=== PATIENT | male | born 1970 | race Caucasian/White ===

== ENCOUNTER 2019-02-27 02:14 | Inpatient (IN) | payer MEDICARE, OTHER ==
[2019-02-27 03:31] LABS: ABNORMAL IP MESSAGE 1; HEMATOCRIT 15.1 % (42.0-52.0); MEAN CORPUSCULAR HEMOGLOBIN 33.8 pg (29.0-33.0); MEAN CORPUSCULAR HGB CONC 30.5 g/dl (32.0-37.0); NUCLEATED RED BLOOD CELLS% 1.9 /100WBC (0.0-0.0); PLATELET COUNT 53 10^3/UL (140-415); POSITIVE DIFF @See below; RED BLOOD COUNT 1.36 10^6/ul (4.70-6.10); RED CELL DISTRIBUTION WIDTH 21.4 % (11.5-14.5)
[2019-02-27 03:31] LABS: WHITE BLOOD COUNT 42.7 10^3/ul (4.8-10.8)
[2019-02-27 03:36] LABS: ADD MAN DIFF? YES; HEMOGLOBIN 4.6 g/dl (14.0-18.0); PATH REVIEW? YES
[2019-02-27 03:53] LABS: ALANINE AMINOTRANSFERASE 60 IU/L (13-69); ALBUMIN/GLOBULIN RATIO 0.86; ALKALINE PHOSPHATASE 484 IU/L (42-121); ANION GAP 7 (5-13); ASPARTATE AMINO TRANSFERASE 35 IU/L (15-46); BILIRUBIN,INDIRECT 0.2 mg/dl (0-1.1); BILIRUBIN,TOTAL 0.2 mg/dl (0.2-1.3); BLOOD UREA NITROGEN 80 mg/dl (7-20); CARBON DIOXIDE 16 mmol/L (21-31); CHLORIDE 109 mmol/L (97-110); CREATININE 1.87 mg/dl (0.61-1.24); Estimated GFR 39 mL/min (>60); GLUCOSE 148 mg/dl (70-220); LIPASE 22 U/L (23-300); POTASSIUM 4.4 mmol/L (3.5-5.1); SODIUM 132 mmol/L (135-144); TOTAL PROTEIN 4.3 g/dl (6.1-8.1)
[2019-02-27 04:05] LABS: B-TYPE NATRIURETIC PEPTIDE 2040 PG/ML (0-125); TROPONIN-I < 0.012 ng/ml (0.000-0.120)
[2019-02-27] MEDS: SOD CHLORIDE 0.9% 1,000 ML IV (04:31)
[2019-02-27 05:10] LABS: ANISOCYTOSIS 1+ (0-0); ERYTHROBLAST% (NRBC) (M) 1 % (0-0); METAMYELOCYTES #M 1.2 10^3/ul (0.0-0.0); METAMYELOCYTES %M 3 % (0-0); MICROCYTOSIS 1+ (0-0); PLATELET ESTIMATE DECREASED; POIKILOCYTOSIS 1+ (0-0); POLYCHROMASIA 2+ (0-0); SEGMENTED NEUTROPHILS (M) % 25 % (39-77); SMUDGE%M 11 % (0-0); TEAR DROP CELLS 1+ (0-0)
[2019-02-27] MEDS ORDERED: ACETAMINOPHEN 650MG/20.3ML CUP PO (06:00)
[2019-02-27] MEDS ORDERED: DOCUSATE SODIUM 100 MG CAP PO (06:00)
[2019-02-27] MEDS ORDERED: BISACODYL (EC) 5 MG TAB PO (06:00)
[2019-02-27 06:10] LABS: AADO2 Arterial 27.3 mmHg (7.0-24.0); Allen Test ACCEPTAB; Arterial Base Excess -11.4 mmol/L (-3.0-3); Arterial Blood Gas Oxygen Sat 95.2 mmHG (95.0-98.0); Arterial COHb 0.7 % (0.0-3.0); Arterial Fraction of Oxyhgb 93.9 % (93.0-99.0); Arterial HCO3 13.5 mmol/L (22.0-26.0); Arterial MetHb 0.7 % (0.0-1.5); Arterial pCO2 25.8 mmhg (35-45); MODE ROOM AIR; Site Right Radial
[2019-02-27] MEDS: morphine 2 MG INJ IV ×4 (06:22→22:16)
[2019-02-27] MEDS: ONDANSETRON 4 MG INJ IV (06:22)
[2019-02-27] MEDS: PANTOPRAZOLE 40 MG INJ IV ×2 (06:51→18:00)
[2019-02-27] MEDS: SOD CHLORIDE 0.9% 500 ML IV (06:52)
[2019-02-27 07:02] LABS: URINE BLOOD (Dip) POC Trace-lysed (NEGATIVE); URINE GLUCOSE (Dip) POC Negative (NEGATIVE); URINE KETONES (Dip) POC Negative (NEGATIVE); URINE LEUKOCYTE EST (Dip) POC Negative (NEGATIVE); URINE NITRITE (Dip) POC Negative (NEGATIVE); URINE TOTAL PROTEIN POC 1+ (NEGATIVE)
[2019-02-27 07:08] LABS: RETICULOCYTE COUNT # 0.058 X10^6 (0.020-0.110); RETICULOCYTE COUNT % 3.8 % (0.5-1.5)
[2019-02-27 07:24] LABS: LACTATE DEHYDROGENASE 1249 IU/L (313-618)
[2019-02-27] MEDS ORDERED: traMADol 50 MG TAB PO (07:30)
[2019-02-27] MEDS: INSULIN ASPART [NOVOLOG] 3 ML PEN SC ×7 (07:35→22:09)
[2019-02-27 07:49] LABS: ADD UMIC YES; UR ASCORBIC ACID NEGATIVE (NEGATIVE); UR BACTERIA FEW /HPF (NONE SEEN); UR BILIRUBIN (Dip) NEGATIVE (NEGATIVE); UR BLOOD (Dip) 1+ mg/dL (NEGATIVE); UR CLARITY SLIGHTLY CLOUDY (CLEAR); UR COLOR AMBER (YELLOW); UR GLUCOSE (Dip) NEGATIVE (NEGATIVE); UR HYALINE CAST FEW /HPF (NONE SEEN); UR KETONES (Dip) NEGATIVE (NEGATIVE); UR LEUKOCYTE ESTERASE (Dip) NEGATIVE Leu/ul (NEGATIVE); UR NITRITE (Dip) NEGATIVE (NEGATIVE); UR RBC 1 /HPF (0-5); UR SPECIFIC GRAVITY (Dip) 1.017 (1.003-1.030); UR TOTAL PROTEIN (Dip) 1+ mg/dl (NEGATIVE); UR UROBILINOGEN (Dip) 1+ mg/dL (NEGATIVE); UR WBC 29 /HPF (0-5)
[2019-02-27] MEDS: BUMETANIDE 1 MG INJ IV (08:24)
[2019-02-27] MEDS ORDERED: NON-FORMULARY/PATIENT OWN MED (Insulin Lispro (Humalog Kwikpen) 3 UNIT) SQ (09:00)
[2019-02-27] MEDS: AMLODIPINE 10 MG TAB PO (09:00)
[2019-02-27 13:12] LABS: WHITE BLOOD COUNT 35.6 10^3/ul (4.8-10.8)
[2019-02-27 13:12] LABS: ABNORMAL IP MESSAGE 1; HEMATOCRIT 15.8 % (42.0-52.0); MEAN CORPUSCULAR HEMOGLOBIN 33.3 pg (29.0-33.0); MEAN CORPUSCULAR HGB CONC 30.4 g/dl (32.0-37.0); MEAN CORPUSCULAR VOLUME 109.7 fl (82.0-101.0); NUCLEATED RED BLOOD CELLS% 2.5 /100WBC (0.0-0.0); PLATELET COUNT 41 10^3/UL (140-415); POSITIVE DIFF @See below; RED BLOOD COUNT 1.44 10^6/ul (4.70-6.10); RED CELL DISTRIBUTION WIDTH 21.9 % (11.5-14.5)
[2019-02-27 13:22] LABS: ADD MAN DIFF? YES
[2019-02-27 13:25] LABS: HEMOGLOBIN 4.8 g/dl (14.0-18.0)
[2019-02-27 14:19] LABS: ANISOCYTOSIS 1+ (0-0); BAND NEUTROPHILS #M 1.7 10^3/ul (0.0-0.6); BAND NEUTROPHILS % (M) 5 % (0-4); BURR CELLS 1+ (0-0); EOSINOPHILS % (M) 2 % (0-7); ERYTHROBLAST% (NRBC) (M) 3 % (0-0); GIANT THROMBO% (M) 3 % (0-0); LYMPHOCYTES #M 8.9 10^3/ul (0.8-2.9); LYMPHOCYTES % (M) 25 % (15-51); METAMYELOCYTES #M 0.7 10^3/ul (0.0-0.0); METAMYELOCYTES %M 2 % (0-0); MONOCYTE #M 4.2 10^3/ul (0.3-0.9); MONOCYTES % (M) 12 % (0-11); MYELOCYTES % (M) 3 % (0-0); PLATELET ESTIMATE SIG DECREASED; POIKILOCYTOSIS 1+ (0-0); POLYCHROMASIA 2+ (0-0); SEG NEUT #M 9.1 10^3/ul (1.6-7.5); SEGMENTED NEUTROPHILS (M) % 24 % (39-77); SMUDGE%M 18 % (0-0)
[2019-02-27] MEDS ORDERED: GLUCOSE GEL 15 GRAM TUBE BUCCAL (15:00)
[2019-02-27] MEDS ORDERED: GLUCAGON 1 MG INJ IM (15:00)
[2019-02-27] MEDS ORDERED: GLUCOSE GEL 15 GRAM TUBE PO ×2 (15:00)
[2019-02-27] MEDS: HYDROCODONE/APAP (5/325) TAB PO (15:22)
[2019-02-27 16:14] LABS: BAND NEUTROPHILS % (M) 0 % (0-4); LYMPHOCYTES #M 2.1 10^3/ul (0.8-2.9); LYMPHOCYTES % (M) 5 % (15-51); SEG NEUT #M 10.7 10^3/ul (1.6-7.5)
[2019-02-27 16:15] LABS: EOSINOPHILS % (M) 12 % (0-7); MONOCYTE #M 5.1 10^3/ul (0.3-0.9); MONOCYTES % (M) 12 % (0-11); MYELOCYTES #M 2.1 10^3/ul (0.0-0.0); MYELOCYTES % (M) 5 % (0-0); PROMYELOCYTES #M 1.7 10^3/ul (0-0); PROMYELOCYTES % (M) 4 % (0-0)
[2019-02-27] MEDS: HYDROmorphONE 1 MG/ML SYG IV ×2 (16:36→20:03)
[2019-02-27 17:01] LABS: AHG CROSSMATCH 1 3
[2019-02-27] MEDS: MIRTAZAPINE 15 MG TAB PO (22:05)
[2019-02-27] MEDS: traZODone 50 MG TAB PO (22:05)
[2019-02-27 23:29] LABS: TYPE AND SCREEN 1
[2019-02-28] MEDS: HYDROmorphONE 1 MG/ML SYG IV ×6 (01:00→22:42)
[2019-02-28 01:17] LABS: WHITE BLOOD COUNT 34.7 10^3/ul (4.8-10.8)
[2019-02-28 01:17] LABS: ABNORMAL IP MESSAGE 1; HEMATOCRIT 25.2 % (42.0-52.0); MEAN CORPUSCULAR HGB CONC 31.7 g/dl (32.0-37.0); MEAN CORPUSCULAR VOLUME 94.4 fl (82.0-101.0); NUCLEATED RED BLOOD CELLS% 1.9 /100WBC (0.0-0.0); PLATELET COUNT 47 10^3/UL (140-415); POSITIVE DIFF @See below; RED BLOOD COUNT 2.67 10^6/ul (4.70-6.10)
[2019-02-28 01:27] LABS: ADD MAN DIFF? YES
[2019-02-28] MEDS: ACCU-CHEK XX (02:00)
[2019-02-28 02:24] LABS: ANISOCYTOSIS 2+ (0-0); BAND NEUTROPHILS % (M) 3 % (0-4); BLAST% (M) 27.5 % (0-0); BURR CELLS 2+ (0-0); EOSINOPHILS % (M) 2 % (0-7); ERYTHROBLAST% (NRBC) (M) 2 % (0-0); GIANT THROMBO% (M) 1 % (0-0); LYMPHOCYTES #M 1.3 10^3/ul (0.8-2.9); LYMPHOCYTES % (M) 4 % (15-51); METAMYELOCYTES #M 3.1 10^3/ul (0.0-0.0); METAMYELOCYTES %M 9 % (0-0); MICROCYTOSIS 1+ (0-0); MONOCYTE #M 4.8 10^3/ul (0.3-0.9); MONOCYTES % (M) 14 % (0-11); MYELOCYTES % (M) 3 % (0-0); PLATELET ESTIMATE DECREASED; POIKILOCYTOSIS 2+ (0-0); POLYCHROMASIA 1+ (0-0); REACTIVE LYMPHOCYTES #M 0.3 10^3/ul (0.0-0.0); REACTIVE LYMPHOCYTES% (M) 1 % (0-0); SEG NEUT #M 12.8 10^3/ul (1.6-7.5); SEGMENTED NEUTROPHILS (M) % 36 % (39-77); SMUDGE%M 15 % (0-0)
[2019-02-28] MEDS: morphine 2 MG INJ IV ×2 (03:19→08:36)
[2019-02-28] MEDS: PANTOPRAZOLE 40 MG INJ IV ×2 (06:03→18:22)
[2019-02-28 06:36] LABS: LACTATE DEHYDROGENASE 1690 IU/L (313-618)
[2019-02-28 06:36] LABS: ANION GAP 7 (5-13); BLOOD UREA NITROGEN 79 mg/dl (7-20); CALCIUM 6.8 mg/dl (8.4-10.2); CARBON DIOXIDE 16 mmol/L (21-31); CHLORIDE 112 mmol/L (97-110); CREATININE 1.47 mg/dl (0.61-1.24); Estimated GFR 51 mL/min (>60); GLUCOSE 86 mg/dl (70-220); POTASSIUM 3.6 mmol/L (3.5-5.1); SODIUM 135 mmol/L (135-144)
[2019-02-28] MEDS: INSULIN ASPART [NOVOLOG] 3 ML PEN SC ×7 (07:35→21:00)
[2019-02-28] MEDS: AMLODIPINE 10 MG TAB PO (08:37)
[2019-02-28] MEDS: LORAZEPAM 1 MG TAB PO (13:39)
[2019-02-28] MEDS: morphine 4 MG/ML VIAL IV ×2 (13:39→20:47)
[2019-02-28] MEDS: MIRTAZAPINE 15 MG TAB PO (21:21)
[2019-02-28] MEDS: morphine (ER) 15 MG TAB PO (21:21)
[2019-02-28] MEDS: traZODone 50 MG TAB PO (21:22)
[2019-03-01] MEDS: morphine 4 MG/ML VIAL IV ×3 (00:01→22:25)
[2019-03-01] MEDS: ACCU-CHEK XX (02:00)
[2019-03-01] MEDS: HYDROmorphONE 1 MG/ML SYG IV ×5 (03:28→19:39)
[2019-03-01] MEDS: PANTOPRAZOLE 40 MG INJ IV ×2 (05:28→18:52)
[2019-03-01 06:00] LABS: ABNORMAL IP MESSAGE 1; HEMATOCRIT 23.6 % (42.0-52.0); HEMOGLOBIN 7.7 g/dl (14.0-18.0); MEAN CORPUSCULAR HEMOGLOBIN 30.4 pg (29.0-33.0); MEAN CORPUSCULAR HGB CONC 32.6 g/dl (32.0-37.0); MEAN CORPUSCULAR VOLUME 93.3 fl (82.0-101.0); MEAN PLATELET VOLUME 10.1 fl (7.4-10.4); NUCLEATED RED BLOOD CELLS% 1.4 /100WBC (0.0-0.0); POSITIVE DIFF @See below; RED BLOOD COUNT 2.53 10^6/ul (4.70-6.10); RED CELL DISTRIBUTION WIDTH 28.8 % (11.5-14.5)
[2019-03-01 06:00] LABS: WHITE BLOOD COUNT 35.9 10^3/ul (4.8-10.8)
[2019-03-01 06:09] LABS: ADD MAN DIFF? YES; PLATELET COUNT 28 10^3/UL (140-415)
[2019-03-01 06:11] LABS: INR 1.41; PROTIME 17.4 Sec (11.9-14.9); PT RATIO 1.4
[2019-03-01 06:17] LABS: ANION GAP 7 (5-13); BLOOD UREA NITROGEN 71 mg/dl (7-20); CARBON DIOXIDE 18 mmol/L (21-31); CHLORIDE 109 mmol/L (97-110); CREATININE 1.38 mg/dl (0.61-1.24); Estimated GFR 55 mL/min (>60); GLUCOSE 80 mg/dl (70-220); POTASSIUM 3.5 mmol/L (3.5-5.1); SODIUM 134 mmol/L (135-144)
[2019-03-01] MEDS: INSULIN ASPART [NOVOLOG] 3 ML PEN SC ×7 (08:23→20:39)
[2019-03-01] MEDS: morphine (ER) 15 MG TAB PO ×2 (08:44→20:16)
[2019-03-01] MEDS: AMLODIPINE 10 MG TAB PO (08:46)
[2019-03-01 09:34] LABS: ANISOCYTOSIS 2+ (0-0); BAND NEUTROPHILS #M 0.7 10^3/ul (0.0-0.6); BAND NEUTROPHILS % (M) 2 % (0-4); BURR CELLS 2+ (0-0); EOSINOPHILS % (M) 5 % (0-7); GIANT THROMBO% (M) 1 % (0-0); LYMPHOCYTES #M 3.5 10^3/ul (0.8-2.9); LYMPHOCYTES % (M) 10 % (15-51); MICROCYTOSIS 1+ (0-0); MONOCYTE #M 5.3 10^3/ul (0.3-0.9); MONOCYTES % (M) 15 % (0-11); MYELOCYTES #M 0.3 10^3/ul (0.0-0.0); MYELOCYTES % (M) 1 % (0-0); PLATELET ESTIMATE SIG DECREASED; POIKILOCYTOSIS 2+ (0-0); POLYCHROMASIA 1+ (0-0); PROMYELOCYTES #M 0.7 10^3/ul (0-0); PROMYELOCYTES % (M) 2 % (0-0); SEG NEUT #M 11.7 10^3/ul (1.6-7.5); SEGMENTED NEUTROPHILS (M) % 32 % (39-77); SMUDGE%M 15 % (0-0); TARGET CELLS 1+ (0-0)
[2019-03-01] MEDS: BISACODYL (EC) 5 MG TAB PO (13:04)
[2019-03-01] MEDS: POLYETHYLENE GLYCOL 3350 119 GM POWDER PO ×2 (18:52→18:53)
[2019-03-01] MEDS: FUROSEMIDE 40 MG INJ IV (19:36)
[2019-03-01] MEDS: MAGNESIUM CITRATE 300 ML BTL PO (20:08)
[2019-03-01] MEDS: MIRTAZAPINE 15 MG TAB PO (20:15)
[2019-03-01] MEDS: traZODone 50 MG TAB PO (20:15)
[2019-03-01] MEDS: ONDANSETRON 4 MG INJ IV (20:20)
[2019-03-02] MEDS: ACCU-CHEK XX (02:14)
[2019-03-02 05:20] LABS: WHITE BLOOD COUNT 53.1 10^3/ul (4.8-10.8)
[2019-03-02 05:20] LABS: ABNORMAL IP MESSAGE 1; HEMATOCRIT 20.9 % (42.0-52.0); MEAN CORPUSCULAR HEMOGLOBIN 30.6 pg (29.0-33.0); MEAN CORPUSCULAR HGB CONC 32.5 g/dl (32.0-37.0); MEAN CORPUSCULAR VOLUME 94.1 fl (82.0-101.0); MEAN PLATELET VOLUME 9.3 fl (7.4-10.4); NUCLEATED RED BLOOD CELLS% 1.4 /100WBC (0.0-0.0); POSITIVE DIFF @See below; RED BLOOD COUNT 2.22 10^6/ul (4.70-6.10); RED CELL DISTRIBUTION WIDTH 28.7 % (11.5-14.5)
[2019-03-02 05:21] LABS: ADD MAN DIFF? YES
[2019-03-02 05:22] LABS: HEMOGLOBIN 6.8 g/dl (14.0-18.0); PLATELET COUNT 25 10^3/UL (140-415)
[2019-03-02 06:19] LABS: MAGNESIUM 3.3 mg/dl (1.7-2.5)
[2019-03-02 06:19] LABS: PHOSPHORUS 5.2 mg/dl (2.5-4.9)
[2019-03-02] MEDS: PANTOPRAZOLE 40 MG INJ IV ×2 (06:29→19:09)
[2019-03-02] MEDS: FUROSEMIDE 40 MG INJ IV ×2 (06:30→19:09)
[2019-03-02 06:36] LABS: ANION GAP 6 (5-13); Estimated GFR 41 mL/min (>60)
[2019-03-02 06:56] LABS: BLOOD UREA NITROGEN 80 mg/dl (7-20); CALCIUM 6.9 mg/dl (8.4-10.2); CARBON DIOXIDE 18 mmol/L (21-31); CHLORIDE 108 mmol/L (97-110); CREATININE 1.79 mg/dl (0.61-1.24); GLUCOSE 82 mg/dl (70-220); POTASSIUM 3.5 mmol/L (3.5-5.1); SODIUM 132 mmol/L (135-144)
[2019-03-02 07:37] LABS: ANISOCYTOSIS 2+ (0-0); BAND NEUTROPHILS #M 3.1 10^3/ul (0.0-0.6); BAND NEUTROPHILS % (M) 6 % (0-4); EOSINOPHILS % (M) 3 % (0-7); ERYTHROBLAST% (NRBC) (M) 2 % (0-0); LYMPHOCYTES #M 3.1 10^3/ul (0.8-2.9); LYMPHOCYTES % (M) 6 % (15-51); METAMYELOCYTES #M 2.6 10^3/ul (0.0-0.0); METAMYELOCYTES %M 5 % (0-0); MONOCYTES % (M) 17 % (0-11); MYELOCYTES #M 0.5 10^3/ul (0.0-0.0); MYELOCYTES % (M) 1 % (0-0); PLATELET ESTIMATE SIG DECREASED; POIKILOCYTOSIS 1+ (0-0); POLYCHROMASIA 1+ (0-0); REACTIVE LYMPHOCYTES #M 0.5 10^3/ul (0.0-0.0); REACTIVE LYMPHOCYTES% (M) 1 % (0-0); SEG NEUT #M 19.2 10^3/ul (1.6-7.5); SEGMENTED NEUTROPHILS (M) % 33 % (39-77); SMUDGE%M 25 % (0-0)
[2019-03-02] MEDS: INSULIN ASPART [NOVOLOG] 3 ML PEN SC ×7 (08:00→21:00)
[2019-03-02] MEDS: morphine (ER) 15 MG TAB PO ×2 (08:32→20:49)
[2019-03-02] MEDS: BISACODYL (EC) 5 MG TAB PO (08:39)
[2019-03-02] MEDS: AMLODIPINE 10 MG TAB PO (09:00)
[2019-03-02 10:44] LABS: TYPE AND SCREEN 1
[2019-03-02] MEDS: HYDROmorphONE 1 MG/ML SYG IV ×4 (11:10→23:31)
[2019-03-02 13:12] LABS: AHG CROSSMATCH 1 2
[2019-03-02] MEDS: PROPOFOL 60 ML (17:11)
[2019-03-02] MEDS: LIDOCAINE 2% (SDV) 5 ML INJ (17:11)
[2019-03-02] MEDS ORDERED: EPHEDrine 25 MG/5 ML SYG IV (18:30)
[2019-03-02] MEDS ORDERED: MEPERIDINE 25 MG INJ IV (18:30)
[2019-03-02] MEDS ORDERED: ONDANSETRON 4 MG INJ IV (18:30)
[2019-03-02] MEDS ORDERED: FENTAnyl 50 MCG/ML VIAL IV (18:30)
[2019-03-02] MEDS ORDERED: ALBUTEROL 0.083% (NEB) 2.5 MG/3 ML AMP HHN (18:30)
[2019-03-02] MEDS ORDERED: LABETALOL HCL 20MG INJ IV (18:30)
[2019-03-02] MEDS ORDERED: hydrALAzine 20 MG INJ IV (18:30)
[2019-03-02] MEDS ORDERED: DIPHENHYDRAMINE 50 MG INJ IV (18:30)
[2019-03-02] MEDS: MIRTAZAPINE 15 MG TAB PO (20:48)
[2019-03-02] MEDS: SUCRALFATE (100 MG/ML) 10ML CUP PO (20:48)
[2019-03-03] MEDS: morphine 4 MG/ML VIAL IV (01:24)
[2019-03-03] MEDS: ACCU-CHEK XX (01:55)
[2019-03-03 02:15] LABS: ABNORMAL IP MESSAGE 1; HEMOGLOBIN 8.4 g/dl (14.0-18.0); MEAN CORPUSCULAR HGB CONC 32.3 g/dl (32.0-37.0); MEAN CORPUSCULAR VOLUME 92.9 fl (82.0-101.0); NUCLEATED RED BLOOD CELLS% 0.7 /100WBC (0.0-0.0); POSITIVE DIFF @See below; RED CELL DISTRIBUTION WIDTH 26.3 % (11.5-14.5)
[2019-03-03 02:15] LABS: WHITE BLOOD COUNT 58.1 10^3/ul (4.8-10.8)
[2019-03-03 02:16] LABS: PLATELET COUNT 30 10^3/UL (140-415)
[2019-03-03 02:17] LABS: ADD MAN DIFF? YES
[2019-03-03 02:19] LABS: MEAN PLATELET VOLUME 9.6 fl (7.4-10.4)
[2019-03-03 03:37] LABS: ANISOCYTOSIS 1+ (0-0); BAND NEUTROPHILS % (M) 7 % (0-4); EOSINOPHILS % (M) 8 % (0-7); ERYTHROBLAST% (NRBC) (M) 3 % (0-0); LYMPHOCYTES #M 4.6 10^3/ul (0.8-2.9); LYMPHOCYTES % (M) 8 % (15-51); METAMYELOCYTES #M 2.3 10^3/ul (0.0-0.0); METAMYELOCYTES %M 4 % (0-0); MONOCYTE #M 9.2 10^3/ul (0.3-0.9); MONOCYTES % (M) 16 % (0-11); MYELOCYTES #M 0.5 10^3/ul (0.0-0.0); MYELOCYTES % (M) 1 % (0-0); PLATELET ESTIMATE SIG DECREASED; POLYCHROMASIA 3+ (0-0); PROMYELOCYTES #M 0.5 10^3/ul (0-0); PROMYELOCYTES % (M) 1 % (0-0); SEG NEUT #M 27.9 10^3/ul (1.6-7.5); SEGMENTED NEUTROPHILS (M) % 44 % (39-77); SMUDGE%M 9 % (0-0)
[2019-03-03] MEDS: PANTOPRAZOLE 40 MG INJ IV ×2 (05:14→17:48)
[2019-03-03] MEDS: FUROSEMIDE 40 MG INJ IV ×2 (05:14→17:48)
[2019-03-03] MEDS: HYDROmorphONE 1 MG/ML SYG IV ×5 (05:15→22:09)
[2019-03-03 06:01] LABS: ANION GAP 8 (5-13); Estimated GFR 37 mL/min (>60)
[2019-03-03 06:08] LABS: BLOOD UREA NITROGEN 86 mg/dl (7-20); CALCIUM 7.1 mg/dl (8.4-10.2); CARBON DIOXIDE 18 mmol/L (21-31); CHLORIDE 106 mmol/L (97-110); CREATININE 1.93 mg/dl (0.61-1.24); GLUCOSE 114 mg/dl (70-220); POTASSIUM 3.5 mmol/L (3.5-5.1); SODIUM 132 mmol/L (135-144)
[2019-03-03] MEDS: INSULIN ASPART [NOVOLOG] 3 ML PEN SC ×6 (08:00→20:36)
[2019-03-03] MEDS: AMLODIPINE 10 MG TAB PO (08:18)
[2019-03-03] MEDS: SUCRALFATE (100 MG/ML) 10ML CUP PO ×4 (08:18→20:34)
[2019-03-03] MEDS: morphine (ER) 15 MG TAB PO ×2 (08:19→20:34)
[2019-03-03] MEDS: MIRTAZAPINE 15 MG TAB PO (22:09)
[2019-03-04] MEDS: HYDROmorphONE 1 MG/ML SYG IV ×8 (01:21→22:48)
[2019-03-04] MEDS: ACCU-CHEK XX (01:54)
[2019-03-04] MEDS: PANTOPRAZOLE 40 MG INJ IV ×2 (05:45→17:39)
[2019-03-04] MEDS: FUROSEMIDE 40 MG INJ IV ×2 (05:46→17:40)
[2019-03-04 05:59] LABS: ABNORMAL IP MESSAGE 1; HEMATOCRIT 25.8 % (42.0-52.0); HEMOGLOBIN 8.4 g/dl (14.0-18.0); MEAN CORPUSCULAR HGB CONC 32.6 g/dl (32.0-37.0); MEAN CORPUSCULAR VOLUME 92.1 fl (82.0-101.0); MEAN PLATELET VOLUME 9.4 fl (7.4-10.4); NUCLEATED RED BLOOD CELLS% 0.6 /100WBC (0.0-0.0); POSITIVE DIFF @See below; RED CELL DISTRIBUTION WIDTH 26.1 % (11.5-14.5)
[2019-03-04 05:59] LABS: WHITE BLOOD COUNT 61.8 10^3/ul (4.8-10.8)
[2019-03-04 06:28] LABS: MAGNESIUM 2.6 mg/dl (1.7-2.5)
[2019-03-04 06:30] LABS: ALANINE AMINOTRANSFERASE 62 IU/L (13-69); ALBUMIN 2.3 g/dl (3.3-4.9); ALBUMIN/GLOBULIN RATIO 0.92; ALKALINE PHOSPHATASE 478 IU/L (42-121); ANION GAP 8 (5-13); ASPARTATE AMINO TRANSFERASE 31 IU/L (15-46); BILIRUBIN,INDIRECT 0.7 mg/dl (0-1.1); BILIRUBIN,TOTAL 0.9 mg/dl (0.2-1.3); BLOOD UREA NITROGEN 91 mg/dl (7-20); CALCIUM 7.1 mg/dl (8.4-10.2); CARBON DIOXIDE 17 mmol/L (21-31); CHLORIDE 106 mmol/L (97-110); CREATININE 1.72 mg/dl (0.61-1.24); Estimated GFR 42 mL/min (>60); GLUCOSE 103 mg/dl (70-220); POTASSIUM 3.5 mmol/L (3.5-5.1); SODIUM 131 mmol/L (135-144); TOTAL PROTEIN 4.8 g/dl (6.1-8.1)
[2019-03-04 06:59] LABS: ADD MAN DIFF? YES; PLATELET COUNT 19 10^3/UL (140-415)
[2019-03-04] MEDS: INSULIN ASPART [NOVOLOG] 3 ML PEN SC ×7 (07:37→20:10)
[2019-03-04] MEDS: SUCRALFATE (100 MG/ML) 10ML CUP PO ×5 (08:35→20:01)
[2019-03-04] MEDS: DOCUSATE SODIUM 100 MG CAP PO (08:35)
[2019-03-04] MEDS: morphine (ER) 15 MG TAB PO ×2 (08:35→20:01)
[2019-03-04 09:10] LABS: ANISOCYTOSIS 2+ (0-0); BAND NEUTROPHILS #M 2.4 10^3/ul (0.0-0.6); BAND NEUTROPHILS % (M) 4 % (0-4); BASOPHIL #M 0.6 10^3/ul (0.0-0.0); BASOPHILS % (M) 1 % (0-2); BURR CELLS 2+ (0-0); EOSINOPHILS % (M) 5 % (0-7); LYMPHOCYTES #M 5.5 10^3/ul (0.8-2.9); LYMPHOCYTES % (M) 9 % (15-51); METAMYELOCYTES #M 1.2 10^3/ul (0.0-0.0); METAMYELOCYTES %M 2 % (0-0); MONOCYTE #M 9.8 10^3/ul (0.3-0.9); MONOCYTES % (M) 16 % (0-11); MYELOCYTES #M 1.8 10^3/ul (0.0-0.0); MYELOCYTES % (M) 3 % (0-0); OVALOCYTES 1+ (0-0); PLATELET ESTIMATE SIG DECREASED; POIKILOCYTOSIS 2+ (0-0); POLYCHROMASIA 3+ (0-0); PROMYELOCYTES #M 1.2 10^3/ul (0-0); PROMYELOCYTES % (M) 2 % (0-0); SEG NEUT #M 25.6 10^3/ul (1.6-7.5); SEGMENTED NEUTROPHILS (M) % 39 % (39-77); SMUDGE%M 18 % (0-0); TARGET CELLS 1+ (0-0); TOXIC GRANULATION 1+ (0-0)
[2019-03-04] MEDS: ALTEPLASE (CATHFLO) 2 MG INJ CATHETER (13:39)
[2019-03-04] MEDS: MIRTAZAPINE 15 MG TAB PO (20:01)
[2019-03-04] MEDS: INSULIN GLARGINE [LANTus] (100 UNITS/ML) SYG SC (20:19)
[2019-03-04] MEDS: LOPERAMIDE 2 MG CAP PO (22:47)
[2019-03-05] MEDS: HYDROCODONE/APAP (10/325) TAB PO (00:56)
[2019-03-05] MEDS: ACCU-CHEK XX (01:36)
[2019-03-05] MEDS: HYDROmorphONE 1 MG/ML SYG IV ×7 (02:20→21:30)
[2019-03-05] MEDS: PANTOPRAZOLE 40 MG INJ IV ×2 (05:25→17:30)
[2019-03-05] MEDS: FUROSEMIDE 40 MG INJ IV ×4 (05:27→17:30)
[2019-03-05 07:04] LABS: WHITE BLOOD COUNT 68.8 10^3/ul (4.8-10.8)
[2019-03-05 07:04] LABS: ABNORMAL IP MESSAGE 1; HEMATOCRIT 24.4 % (42.0-52.0); HEMOGLOBIN 7.8 g/dl (14.0-18.0); MEAN CORPUSCULAR HEMOGLOBIN 29.3 pg (29.0-33.0); MEAN CORPUSCULAR VOLUME 91.7 fl (82.0-101.0); MEAN PLATELET VOLUME 10.9 fl (7.4-10.4); NUCLEATED RED BLOOD CELLS% 0.6 /100WBC (0.0-0.0); POSITIVE DIFF @See below; RED BLOOD COUNT 2.66 10^6/ul (4.70-6.10); RED CELL DISTRIBUTION WIDTH 26.1 % (11.5-14.5)
[2019-03-05 07:09] LABS: ANION GAP 7 (5-13); BLOOD UREA NITROGEN 91 mg/dl (7-20); CALCIUM 6.9 mg/dl (8.4-10.2); CARBON DIOXIDE 18 mmol/L (21-31); CHLORIDE 107 mmol/L (97-110); CREATININE 1.78 mg/dl (0.61-1.24); Estimated GFR 41 mL/min (>60); POTASSIUM 3.2 mmol/L (3.5-5.1); SODIUM 132 mmol/L (135-144)
[2019-03-05 07:10] LABS: GLUCOSE 50 mg/dl (70-220)
[2019-03-05 07:11] LABS: PLATELET COUNT 21 10^3/UL (140-415)
[2019-03-05 07:11] LABS: MAGNESIUM 2.3 mg/dl (1.7-2.5)
[2019-03-05 07:12] LABS: ADD MAN DIFF? YES
[2019-03-05] MEDS: INSULIN ASPART [NOVOLOG] 3 ML PEN SC ×5 (07:56→20:17)
[2019-03-05] MEDS: SUCRALFATE (100 MG/ML) 10ML CUP PO ×4 (07:56→20:13)
[2019-03-05] MEDS: morphine (ER) 15 MG TAB PO ×2 (07:56→20:14)
[2019-03-05] MEDS: DOCUSATE SODIUM 100 MG CAP PO (07:56)
[2019-03-05 09:22] LABS: ANISOCYTOSIS 2+ (0-0); BAND NEUTROPHILS #M 4.1 10^3/ul (0.0-0.6); BAND NEUTROPHILS % (M) 6 % (0-4); BURR CELLS 2+ (0-0); EOSINOPHILS % (M) 4 % (0-7); ERYTHROBLAST% (NRBC) (M) 1 % (0-0); HYPOCHROMASIA 1+ (0-0); LYMPHOCYTES #M 3.4 10^3/ul (0.8-2.9); LYMPHOCYTES % (M) 5 % (15-51); MONOCYTE #M 19.2 10^3/ul (0.3-0.9); MONOCYTES % (M) 28 % (0-11); MYELOCYTES % (M) 3 % (0-0); PLATELET ESTIMATE SIG DECREASED; POIKILOCYTOSIS 2+ (0-0); POLYCHROMASIA 3+ (0-0); PROMYELOCYTES #M 0.6 10^3/ul (0-0); PROMYELOCYTES % (M) 1 % (0-0); REACTIVE LYMPHOCYTES% (M) 3 % (0-0); SEG NEUT #M 22.1 10^3/ul (1.6-7.5); SEGMENTED NEUTROPHILS (M) % 28 % (39-77); SMUDGE%M 11 % (0-0); TARGET CELLS 1+ (0-0)
[2019-03-05] MEDS: POTASSIUM CHLORIDE 20 MEQ POWDER FOR ORAL SOLN PO ×2 (09:23→20:13)
[2019-03-05] MEDS: DEXTROSE 50% 50 ML SYRINGE IV (12:35)
[2019-03-05] MEDS: ONDANSETRON 4 MG INJ IV ×2 (13:58→20:29)
[2019-03-05 14:51] LABS: GLUCOSE 77 mg/dl (70-220)
[2019-03-05] MEDS: LOPERAMIDE 2 MG CAP PO ×2 (15:43→17:30)
[2019-03-05] MEDS: INSULIN GLARGINE [LANTus] (100 UNITS/ML) SYG SC (20:00)
[2019-03-05] MEDS: MIRTAZAPINE 15 MG TAB PO (20:13)
[2019-03-06] MEDS: HYDROmorphONE 1 MG/ML SYG IV ×6 (00:46→22:12)
[2019-03-06] MEDS: ACCU-CHEK XX ×2 (02:00→21:52)
[2019-03-06 06:22] LABS: ABNORMAL IP MESSAGE 1; HEMATOCRIT 22.7 % (42.0-52.0); HEMOGLOBIN 7.5 g/dl (14.0-18.0); MEAN CORPUSCULAR HEMOGLOBIN 30.2 pg (29.0-33.0); MEAN CORPUSCULAR VOLUME 91.5 fl (82.0-101.0); MEAN PLATELET VOLUME 10.2 fl (7.4-10.4); NUCLEATED RED BLOOD CELLS% 0.6 /100WBC (0.0-0.0); POSITIVE DIFF @See below; RED BLOOD COUNT 2.48 10^6/ul (4.70-6.10); RED CELL DISTRIBUTION WIDTH 25.9 % (11.5-14.5)
[2019-03-06] MEDS: PANTOPRAZOLE 40 MG INJ IV ×2 (06:24→18:15)
[2019-03-06 06:41] LABS: MAGNESIUM 2.1 mg/dl (1.7-2.5)
[2019-03-06 06:41] LABS: PHOSPHORUS 4.2 mg/dl (2.5-4.9)
[2019-03-06 06:48] LABS: ADD MAN DIFF? YES; PLATELET COUNT 26 10^3/UL (140-415)
[2019-03-06 06:49] LABS: ANION GAP 6 (5-13); BLOOD UREA NITROGEN 90 mg/dl (7-20); CALCIUM 6.9 mg/dl (8.4-10.2); CARBON DIOXIDE 18 mmol/L (21-31); CHLORIDE 108 mmol/L (97-110); CREATININE 1.75 mg/dl (0.61-1.24); Estimated GFR 42 mL/min (>60); GLUCOSE 85 mg/dl (70-220); SODIUM 132 mmol/L (135-144)
[2019-03-06] MEDS: INSULIN ASPART [NOVOLOG] 3 ML PEN SC ×4 (07:50→21:00)
[2019-03-06] MEDS: POTASSIUM CHLORIDE 20 MEQ POWDER FOR ORAL SOLN PO ×2 (08:52→20:12)
[2019-03-06] MEDS: SUCRALFATE (100 MG/ML) 10ML CUP PO ×4 (08:52→20:13)
[2019-03-06] MEDS: morphine (ER) 15 MG TAB PO ×2 (08:56→20:20)
[2019-03-06] MEDS: HYDROXYUREA 500 MG CAP PO (09:01)
[2019-03-06 10:15] LABS: ANISOCYTOSIS 1+ (0-0); BAND NEUTROPHILS #M 3.5 10^3/ul (0.0-0.6); BAND NEUTROPHILS % (M) 4 % (0-4); BASOPHIL #M 0.8 10^3/ul (0.0-0.0); BASOPHILS % (M) 1 % (0-2); BLAST% (M) 22.8 % (0-0); EOSINOPHILS % (M) 12 % (0-7); ERYTHROBLAST% (NRBC) (M) 1 % (0-0); LYMPHOCYTES #M 2.6 10^3/ul (0.8-2.9); LYMPHOCYTES % (M) 3 % (15-51); MONOCYTE #M 22.8 10^3/ul (0.3-0.9); MONOCYTES % (M) 26 % (0-11); MYELOCYTES #M 1.7 10^3/ul (0.0-0.0); MYELOCYTES % (M) 2 % (0-0); OVALOCYTES 1+ (0-0); PLASMA CELLS #M 0.8 10^3/ul (0.0-0.0); PLASMAC%(M) 1 % (0); PLATELET ESTIMATE SIG DECREASED; POIKILOCYTOSIS 1+ (0-0); POLYCHROMASIA 1+ (0-0); PROMYELOCYTES #M 0.8 10^3/ul (0-0); PROMYELOCYTES % (M) 1 % (0-0); SEG NEUT #M 27.7 10^3/ul (1.6-7.5); SEGMENTED NEUTROPHILS (M) % 28 % (39-77); SMUDGE%M 32 % (0-0)
[2019-03-06] MEDS: D5W-0.45 NACL + KCL 20 MEQ 1,000 ML IV ×2 (10:48→20:31)
[2019-03-06] MEDS: FUROSEMIDE 40 MG INJ IV ×3 (10:51→21:26)
[2019-03-06] MEDS: LOPERAMIDE HCL 1 MG/5 ML LIQUID (10 ML UD CUP) PO ×2 (11:49→20:12)
[2019-03-06] MEDS: ALLOPURINOL 300 MG TAB PO (13:48)
[2019-03-06] MEDS: HYDROCODONE/APAP (10/325) TAB PO ×3 (15:22→23:45)
[2019-03-06] MEDS: SOD CHLORIDE 0.9% 500 ML IV (16:00)
[2019-03-06] MEDS: APIXABAN 5 MG TABLET PO (20:13)
[2019-03-06] MEDS: MIRTAZAPINE 15 MG TAB PO (20:13)
[2019-03-06] MEDS: INSULIN GLARGINE [LANTus] (100 UNITS/ML) SYG SC (20:29)
[2019-03-06] MEDS: BUSPIRONE 5 MG TAB PO (21:28)
[2019-03-07] MEDS: HYDROmorphONE 1 MG/ML SYG IV ×7 (01:09→20:08)
[2019-03-07] MEDS: D5W-0.45 NACL + KCL 20 MEQ 1,000 ML IV ×2 (04:20→06:19)
[2019-03-07 04:58] LABS: ABNORMAL IP MESSAGE 1; HEMOGLOBIN 8.6 g/dl (14.0-18.0); MEAN CORPUSCULAR HEMOGLOBIN 30.1 pg (29.0-33.0); MEAN CORPUSCULAR HGB CONC 33.1 g/dl (32.0-37.0); MEAN CORPUSCULAR VOLUME 90.9 fl (82.0-101.0); MEAN PLATELET VOLUME 11.1 fl (7.4-10.4); NUCLEATED RED BLOOD CELLS% 0.6 /100WBC (0.0-0.0); PLATELET COUNT 33 10^3/UL (140-415); POSITIVE DIFF @See below; RED BLOOD COUNT 2.86 10^6/ul (4.70-6.10); RED CELL DISTRIBUTION WIDTH 24.1 % (11.5-14.5)
[2019-03-07 04:58] LABS: WHITE BLOOD COUNT 78.2 10^3/ul (4.8-10.8)
[2019-03-07 05:20] LABS: ADD MAN DIFF? YES
[2019-03-07 05:45] LABS: PHOSPHORUS 4.3 mg/dl (2.5-4.9)
[2019-03-07 05:45] LABS: MAGNESIUM 1.9 mg/dl (1.7-2.5)
[2019-03-07 05:48] LABS: ANION GAP 6 (5-13); BLOOD UREA NITROGEN 88 mg/dl (7-20); CALCIUM 6.7 mg/dl (8.4-10.2); CARBON DIOXIDE 17 mmol/L (21-31); CHLORIDE 109 mmol/L (97-110); CREATININE 1.58 mg/dl (0.61-1.24); Estimated GFR 47 mL/min (>60); GLUCOSE 59 mg/dl (70-220); SODIUM 132 mmol/L (135-144)
[2019-03-07 05:50] LABS: POTASSIUM 4.9 mmol/L (3.5-5.1)
[2019-03-07] MEDS: PANTOPRAZOLE 40 MG INJ IV ×2 (06:06→18:25)
[2019-03-07] MEDS: FUROSEMIDE 40 MG INJ IV ×2 (06:08→18:25)
[2019-03-07 07:42] LABS: ANISOCYTOSIS 1+ (0-0); BAND NEUTROPHILS #M 3.9 10^3/ul (0.0-0.6); BAND NEUTROPHILS % (M) 5 % (0-4); BURR CELLS 1+ (0-0); EOSINOPHILS % (M) 6 % (0-7); ERYTHROBLAST% (NRBC) (M) 3 % (0-0); LYMPHOCYTES % (M) 9 % (15-51); MONOCYTE #M 18.7 10^3/ul (0.3-0.9); MONOCYTES % (M) 24 % (0-11); MYELOCYTES #M 0.7 10^3/ul (0.0-0.0); MYELOCYTES % (M) 1 % (0-0); OVALOCYTES 1+ (0-0); PLATELET ESTIMATE SIG DECREASED; POIKILOCYTOSIS 1+ (0-0); POLYCHROMASIA 1+ (0-0); PROMYELOCYTES #M 2.3 10^3/ul (0-0); PROMYELOCYTES % (M) 3 % (0-0); SEG NEUT #M 22.6 10^3/ul (1.6-7.5); SEGMENTED NEUTROPHILS (M) % 25 % (39-77); SMUDGE%M 31 % (0-0)
[2019-03-07] MEDS: INSULIN ASPART [NOVOLOG] 3 ML PEN SC ×4 (08:50→20:54)
[2019-03-07] MEDS: POTASSIUM CHLORIDE 20 MEQ POWDER FOR ORAL SOLN PO (08:56)
[2019-03-07] MEDS: APIXABAN 5 MG TABLET PO ×2 (08:56→20:53)
[2019-03-07] MEDS: BUSPIRONE 5 MG TAB PO ×2 (08:56→20:54)
[2019-03-07] MEDS: ALLOPURINOL 300 MG TAB PO (08:56)
[2019-03-07] MEDS: morphine (ER) 15 MG TAB PO ×2 (08:57→20:54)
[2019-03-07] MEDS: SUCRALFATE (100 MG/ML) 10ML CUP PO ×4 (09:00→20:57)
[2019-03-07] MEDS ORDERED: ALLOPURINOL 300 MG TAB PO (09:00)
[2019-03-07] MEDS: HYDROXYUREA 500 MG CAP PO (11:32)
[2019-03-07] MEDS: IPRATROPIUM (NEB) 0.5 MG/2.5 ML AMP NEB (11:54)
[2019-03-07] MEDS: ALBUTEROL 0.083% (NEB) 2.5 MG/3 ML AMP NEB ×2 (11:54→16:15)
[2019-03-07] MEDS: ONDANSETRON 4 MG INJ IV ×2 (12:38→20:07)
[2019-03-07] MEDS: LOPERAMIDE HCL 1 MG/5 ML LIQUID (10 ML UD CUP) PO (15:39)
[2019-03-07] MEDS: INSULIN GLARGINE [LANTus] (100 UNITS/ML) SYG SC (20:53)
[2019-03-07] MEDS: MIRTAZAPINE 15 MG TAB PO (20:54)
[2019-03-07] MEDS: HYDROmorphONE 2 MG/ML SYG IV (23:06)
[2019-03-08] MEDS: ACCU-CHEK XX (02:00)
[2019-03-08] MEDS: HYDROmorphONE 2 MG/ML SYG IV (02:41)
[2019-03-08] MEDS: ONDANSETRON 4 MG INJ IV (02:41)
[2019-03-08] MEDS: FUROSEMIDE 40 MG INJ IV ×2 (05:46→18:00)
[2019-03-08] MEDS: PANTOPRAZOLE 40 MG INJ IV ×2 (05:46→18:52)
[2019-03-08 05:51] LABS: ABNORMAL IP MESSAGE 1; HEMATOCRIT 24.5 % (42.0-52.0); HEMOGLOBIN 8.1 g/dl (14.0-18.0); MEAN CORPUSCULAR HGB CONC 33.1 g/dl (32.0-37.0); MEAN CORPUSCULAR VOLUME 90.7 fl (82.0-101.0); NUCLEATED RED BLOOD CELLS% 0.7 /100WBC (0.0-0.0); POSITIVE DIFF @See below; RED CELL DISTRIBUTION WIDTH 24.3 % (11.5-14.5)
[2019-03-08 05:51] LABS: WHITE BLOOD COUNT 55.2 10^3/ul (4.8-10.8)
[2019-03-08 06:14] LABS: ADD MAN DIFF? YES; PLATELET COUNT 26 10^3/UL (140-415)
[2019-03-08 07:06] LABS: ANION GAP 5 (5-13); BLOOD UREA NITROGEN 80 mg/dl (7-20); CALCIUM 6.5 mg/dl (8.4-10.2); CARBON DIOXIDE 18 mmol/L (21-31); CHLORIDE 109 mmol/L (97-110); CREATININE 1.67 mg/dl (0.61-1.24); Estimated GFR 44 mL/min (>60); POTASSIUM 4.5 mmol/L (3.5-5.1); SODIUM 132 mmol/L (135-144)
[2019-03-08 07:09] LABS: GLUCOSE 25 mg/dl (70-220)
[2019-03-08] MEDS: DEXTROSE 50% 50 ML SYRINGE IV ×6 (07:17→15:44)
[2019-03-08 08:01] LABS: ANISOCYTOSIS 1+ (0-0); BAND NEUTROPHILS #M 0.5 10^3/ul (0.0-0.6); BAND NEUTROPHILS % (M) 1 % (0-4); BURR CELLS 2+ (0-0); EOSINOPHILS % (M) 11 % (0-7); ERYTHROBLAST% (NRBC) (M) 1 % (0-0); HYPOCHROMASIA 1+ (0-0); LYMPHOCYTES #M 2.2 10^3/ul (0.8-2.9); LYMPHOCYTES % (M) 4 % (15-51); METAMYELOCYTES #M 0.5 10^3/ul (0.0-0.0); METAMYELOCYTES %M 1 % (0-0); MICROCYTOSIS 1+ (0-0); MONOCYTE #M 11.5 10^3/ul (0.3-0.9); MONOCYTES % (M) 21 % (0-11); PLATELET ESTIMATE SIG DECREASED; POIKILOCYTOSIS 2+ (0-0); PROMYELOCYTES #M 2.2 10^3/ul (0-0); PROMYELOCYTES % (M) 4 % (0-0); SCHISTOCYTES 1+ (0-0); SEG NEUT #M 15.2 10^3/ul (1.6-7.5); SEGMENTED NEUTROPHILS (M) % 27 % (39-77); SMUDGE%M 12 % (0-0)
[2019-03-08] MEDS: ALLOPURINOL 300 MG TAB PO (09:00)
[2019-03-08] MEDS: SUCRALFATE (100 MG/ML) 10ML CUP PO ×4 (09:00→21:00)
[2019-03-08] MEDS: APIXABAN 5 MG TABLET PO ×2 (09:00→21:00)
[2019-03-08] MEDS: HYDROXYUREA 500 MG CAP PO (09:00)
[2019-03-08] MEDS: morphine (ER) 15 MG TAB PO ×2 (09:00→21:00)
[2019-03-08] MEDS: BUSPIRONE 5 MG TAB PO ×2 (09:00→21:00)
[2019-03-08] MEDS ORDERED: METHYLPREDNISOLONE 125 MG INJ (09:02)
[2019-03-08] MEDS: FUROSEMIDE 40 MG INJ IM (09:08)
[2019-03-08] MEDS: METHYLPREDNISOLONE 125 MG INJ IV (09:14)
[2019-03-08] MEDS: ALBUMIN HUMAN 25% 100 ML IV ×2 (09:34→10:35)
[2019-03-08 09:37] LABS: AADO2 Arterial 289.5 mmHg (7.0-24.0); Allen Test ACCEPTAB; Arterial Base Excess -11.6 mmol/L (-3.0-3); Arterial Blood Gas Oxygen Sat 99.2 mmHG (95.0-98.0); Arterial COHb 0.3 % (0.0-3.0); Arterial Fraction of Oxyhgb 98.3 % (93.0-99.0); Arterial HCO3 11.6 mmol/L (22.0-26.0); Arterial MetHb 0.6 % (0.0-1.5); Arterial pCO2 19.8 mmhg (35-45); Blood Gas IEPAP 13/5; MODE MASK - BIPAP; Site Right Radial
[2019-03-08] MEDS: NA BICARBONATE 8.4% 50 ML SYG IV ×5 (09:50→15:58)
[2019-03-08] MEDS: INSULIN ASPART [NOVOLOG] 3 ML PEN SC ×4 (10:24→21:00)
[2019-03-08] MEDS: LACTATED RINGER'S 1,000 ML IV (10:25)
[2019-03-08] MEDS ORDERED: VANCOMYCIN IV PER PHARMACY XX (10:30)
[2019-03-08] MEDS: CALCIUM GLUCONATE 10% 2 GM in DEXTROSE 5% 100 ML IVPB (10:50)
[2019-03-08] MEDS: NORepinephrine 8MG/250 ML (PMX 250 ML IV ×3 (11:04→20:17)
[2019-03-08] MEDS: CEFEPIME 2GM/50 ML IVPB (11:37)
[2019-03-08 11:45] LABS: LACTIC ACID 6.7 mmol/L (0.5-2.0)
[2019-03-08] MEDS: DEXTROSE 10% 1,000 ML IV ×4 (12:23→22:12)
[2019-03-08] MEDS: SOD CHLORIDE 0.9% 1,000 ML IV ×2 (12:23→14:44)
[2019-03-08] MEDS: VANCOMYCIN 1.5 GM/NS 250 ML 250 ML IVPB (13:25)
[2019-03-08] MEDS: MIDAZOLAM (DRIP) 50 mg/50 mL 50 ML IV (14:00)
[2019-03-08] MEDS ORDERED: LORAZEPAM 2 MG INJ (14:11)
[2019-03-08] MEDS: VASOPRESSIN 60 UNIT in DEXTROSE 5% 57 ML IV (14:41)
[2019-03-08] MEDS: SODIUM BICARBONATE (IV ADD) 100 MEQ in DEXTROSE 5%-0.45% NACL 900 ML IV (14:43)
[2019-03-08] MEDS: LORAZEPAM 2 MG INJ IV (14:43)
[2019-03-08 14:45] LABS: TYPE AND SCREEN 1
[2019-03-08 14:57] LABS: WHITE BLOOD COUNT 107.8 10^3/ul (4.8-10.8)
[2019-03-08 14:57] LABS: ABNORMAL IP MESSAGE 1; HEMATOCRIT 18.8 % (42.0-52.0); MEAN CORPUSCULAR HEMOGLOBIN 30.5 pg (29.0-33.0); MEAN CORPUSCULAR HGB CONC 30.9 g/dl (32.0-37.0); MEAN CORPUSCULAR VOLUME 98.9 fl (82.0-101.0); MEAN PLATELET VOLUME 10.3 fl (7.4-10.4); NUCLEATED RED BLOOD CELLS% 1.5 /100WBC (0.0-0.0); POSITIVE DIFF @See below
[2019-03-08 14:58] LABS: PLATELET COUNT 40 10^3/UL (140-415)
[2019-03-08 15:00] LABS: ADD MAN DIFF? YES; HEMOGLOBIN 5.8 g/dl (14.0-18.0)
[2019-03-08 15:25] LABS: AADO2 Arterial 386.9 mmHg (7.0-24.0); Allen Test ACCEPTAB; Arterial Base Excess -18.8 mmol/L (-3.0-3); Arterial Blood Gas Oxygen Sat 98.8 mmHG (95.0-98.0); Arterial COHb 0.3 % (0.0-3.0); Arterial Fraction of Oxyhgb 97.1 % (93.0-99.0); Arterial HCO3 11.3 mmol/L (22.0-26.0); Arterial MetHb 1.4 % (0.0-1.5); MODE VENT - AC; Site Left Radial
[2019-03-08 15:28] LABS: LACTIC ACID 10.3 mmol/L (0.5-2.0)
[2019-03-08 15:31] LABS: IMMEDIATE SPIN CROSSMATCH 1
[2019-03-08 15:54] LABS: PLATELET COUNT 53 10^3/UL (140-415)
[2019-03-08] MEDS: MEROPENEM 500MG/50 ML (PMX) 50 ML IVPB ×2 (15:59→22:11)
[2019-03-08 16:17] LABS: INR 4.87; PROTIME 45.4 Sec (11.9-14.9); PT RATIO 3.5
[2019-03-08 16:21] LABS: THROMBIN TIME 21.3 SEC (13.8-19.1)
[2019-03-08 16:25] LABS: D-DIMER 1305.73 ng/ml (<460)
[2019-03-08 16:26] LABS: PARTIAL THROMBOPLASTIN TIME 132.9 Sec (23.0-35.0)
[2019-03-08] MEDS: HYDROCORTISONE 100 MG INJ IV ×2 (18:14→22:11)
[2019-03-08 18:20] LABS: AHG CROSSMATCH 1 7
[2019-03-08 19:06] LABS: PATH REVIEW? YES
[2019-03-08 20:16] LABS: AADO2 Arterial 334.3 mmHg (7.0-24.0); Allen Test ACCEPTAB; Arterial Base Excess -16.9 mmol/L (-3.0-3); Arterial Blood Gas Oxygen Sat 97.8 mmHG (95.0-98.0); Arterial COHb 0.3 % (0.0-3.0); Arterial Fraction of Oxyhgb 96.7 % (93.0-99.0); Arterial HCO3 10.8 mmol/L (22.0-26.0); Arterial MetHb 0.8 % (0.0-1.5); Arterial pCO2 32.2 mmhg (35-45); MODE VENT - AC; Site Left Radial
[2019-03-08] MEDS: PHENYLephrine 80 MG in DEXTROSE 5% 242 ML IV (20:48)
[2019-03-08] MEDS: MIRTAZAPINE 15 MG TAB PO (21:00)
[2019-03-08 22:13] LABS: WHITE BLOOD COUNT 154.3 10^3/ul (4.8-10.8)
[2019-03-08 22:13] LABS: ABNORMAL IP MESSAGE 1; HEMATOCRIT 27.9 % (42.0-52.0); MEAN CORPUSCULAR HGB CONC 32.3 g/dl (32.0-37.0); MEAN PLATELET VOLUME 9.3 fl (7.4-10.4); NUCLEATED RED BLOOD CELLS% 1.4 /100WBC (0.0-0.0); PLATELET COUNT 39 10^3/UL (140-415); POSITIVE DIFF @See below; RED CELL DISTRIBUTION WIDTH 19.5 % (11.5-14.5)
[2019-03-08 22:15] LABS: ADD MAN DIFF? YES
[2019-03-08 22:30] LABS: ANION GAP 15 (5-13); BLOOD UREA NITROGEN 74 mg/dl (7-20); CALCIUM 6.4 mg/dl (8.4-10.2); CARBON DIOXIDE 16 mmol/L (21-31); CHLORIDE 105 mmol/L (97-110); CREATININE 2.21 mg/dl (0.61-1.24); Estimated GFR 32 mL/min (>60); GLUCOSE 74 mg/dl (70-220); POTASSIUM 5.2 mmol/L (3.5-5.1); SODIUM 136 mmol/L (135-144)
[2019-03-08 22:31] LABS: INR 4.57; PROTIME 43.2 Sec (11.9-14.9); PT RATIO 3.4
[2019-03-08 22:39] LABS: LACTIC ACID 11.2 mmol/L (0.5-2.0)
[2019-03-08 23:00] LABS: ACANTHOCYTES 1+ (0-0); ANISOCYTOSIS 2+ (0-0); BURR CELLS 1+ (0-0); EOSINOPHILS % (M) 4 % (0-7); ERYTHROBLAST% (NRBC) (M) 3 % (0-0); LYMPHOCYTES #M 18.5 10^3/ul (0.8-2.9); LYMPHOCYTES % (M) 12 % (15-51); METAMYELOCYTES #M 1.5 10^3/ul (0.0-0.0); METAMYELOCYTES %M 1 % (0-0); MICROCYTOSIS 1+ (0-0); MONOCYTES % (M) 24 % (0-11); MYELOCYTES % (M) 2 % (0-0); PLATELET ESTIMATE SIG DECREASED; POIKILOCYTOSIS 3+ (0-0); POLYCHROMASIA 3+ (0-0); PROMYELOCYTES #M 10.8 10^3/ul (0-0); PROMYELOCYTES % (M) 7 % (0-0); SEGMENTED NEUTROPHILS (M) % 4 % (39-77); SMUDGE%M 16 % (0-0); TARGET CELLS 1+ (0-0)
[2019-03-08] MEDS: COSYNTROPIN 0.25 MG INJ IV (23:02)
[2019-03-09] MEDS: ALBUMIN HUMAN 25% 100 ML IV (00:34)
[2019-03-09] MEDS: SOD CHLORIDE 0.9% 500 ML IV (00:34)
[2019-03-09] MEDS: DOPamine-D5W 1.6 MG/ML 250 ML IV (00:49)
[2019-03-09] MEDS: INSULIN ASPART [NOVOLOG] 3 ML PEN SC ×2 (01:00→05:00)
[2019-03-09] MEDS: SODIUM BICARBONATE (IV ADD) 100 MEQ in DEXTROSE 5%-0.45% NACL 900 ML IV (01:20)
[2019-03-09] MEDS: PHENYLephrine 80 MG in DEXTROSE 5% 242 ML IV ×2 (01:31→06:02)
[2019-03-09] MEDS: NORepinephrine 8MG/250 ML (PMX 250 ML IV ×2 (01:41→06:02)
[2019-03-09] MEDS: ACCU-CHEK XX (01:53)
[2019-03-09] MEDS: DEXTROSE 10% 1,000 ML IV (03:49)
[2019-03-09] MEDS: EPINEPHrine 4 MG in DEXTROSE 5% 246 ML IV (03:53)
[2019-03-09] MEDS: VASOPRESSIN 60 UNIT in DEXTROSE 5% 57 ML IV (03:58)
[2019-03-09 04:30] LABS: WHITE BLOOD COUNT 173.9 10^3/ul (4.8-10.8)
[2019-03-09 04:30] LABS: ABNORMAL IP MESSAGE 1; HEMATOCRIT 17.3 % (42.0-52.0); MEAN CORPUSCULAR HEMOGLOBIN 30.2 pg (29.0-33.0); MEAN CORPUSCULAR HGB CONC 30.1 g/dl (32.0-37.0); MEAN CORPUSCULAR VOLUME 100.6 fl (82.0-101.0); MEAN PLATELET VOLUME 11.5 fl (7.4-10.4); NUCLEATED RED BLOOD CELLS% 0.9 /100WBC (0.0-0.0); PLATELET COUNT 47 10^3/UL (140-415); POSITIVE DIFF @See below; RED BLOOD COUNT 1.72 10^6/ul (4.70-6.10); RED CELL DISTRIBUTION WIDTH 20.9 % (11.5-14.5)
[2019-03-09 04:37] LABS: HEMOGLOBIN 5.2 g/dl (14.0-18.0)
[2019-03-09 04:38] LABS: ADD MAN DIFF? YES
[2019-03-09 04:43] LABS: ANION GAP 18 (5-13); BLOOD UREA NITROGEN 69 mg/dl (7-20); CHLORIDE 105 mmol/L (97-110); GLUCOSE 266 mg/dl (70-220); MAGNESIUM 2.2 mg/dl (1.7-2.5); PHOSPHORUS 9.8 mg/dl (2.5-4.9); SODIUM 133 mmol/L (135-144)
[2019-03-09 04:51] LABS: CARBON DIOXIDE 10 mmol/L (21-31)
[2019-03-09 04:52] LABS: CREATININE 2.19 mg/dl (0.61-1.24); Estimated GFR 32 mL/min (>60)
[2019-03-09 04:59] LABS: POTASSIUM 7.4 mmol/L (3.5-5.1)
[2019-03-09] MEDS: NA POLYST SULFON 15 GM/60 ML BTL PO (05:12)
[2019-03-09 05:24] LABS: ANISOCYTOSIS 1+ (0-0); EOSINOPHILS % (M) 5 % (0-7); ERYTHROBLAST% (NRBC) (M) 1 % (0-0); LYMPHOCYTES #M 36.5 10^3/ul (0.8-2.9); LYMPHOCYTES % (M) 21 % (15-51); METAMYELOCYTES #M 1.7 10^3/ul (0.0-0.0); METAMYELOCYTES %M 1 % (0-0); MICROCYTOSIS 1+ (0-0); MONOCYTE #M 27.8 10^3/ul (0.3-0.9); MONOCYTES % (M) 16 % (0-11); PLATELET ESTIMATE SIG DECREASED; POIKILOCYTOSIS 3+ (0-0); POLYCHROMASIA 3+ (0-0); PROMYELOCYTES #M 5.2 10^3/ul (0-0); PROMYELOCYTES % (M) 3 % (0-0); REACTIVE LYMPHOCYTES #M 5.2 10^3/ul (0.0-0.0); REACTIVE LYMPHOCYTES% (M) 3 % (0-0); SEGMENTED NEUTROPHILS (M) % 4 % (39-77); SMUDGE%M 40 % (0-0)
[2019-03-09] MEDS: DEXTROSE 50% 50 ML SYRINGE IV ×2 (05:40)
[2019-03-09 05:44] LABS: INR > 10.00; PROTIME > 100.0 Sec (11.9-14.9); PT RATIO 7.8
[2019-03-09 05:48] LABS: AADO2 Arterial 608.1 mmHg (7.0-24.0); Allen Test ACCEPTAB; Arterial Blood Gas Oxygen Sat 21.3 mmHG (95.0-98.0); Arterial COHb 0 % (0.0-3.0); Arterial Fraction of Oxyhgb 21.2 % (93.0-99.0); Arterial HCO3 7.3 mmol/L (22.0-26.0); Arterial MetHb 0.5 % (0.0-1.5); MODE VENT - AC; Site Right Radial
[2019-03-09] MEDS: PHYTONADIONE 10 MG/ML INJ SC (05:59)
[2019-03-09] MEDS ORDERED: NA BICARBONATE 8.4% 50 ML SYG (06:00)
[2019-03-09] MEDS ORDERED: EPINEPHrine 0.1 MG/ML SYG (06:00)
[2019-03-09] MEDS ORDERED: ATROPINE 1 MG/10 ML SYRINGE (06:00)
[2019-03-09] MEDS ORDERED: CA CHLORIDE 10% 10 ML SYRINGE (06:00)
[2019-03-09] MEDS: PANTOPRAZOLE 40 MG INJ IV (06:00)
[2019-03-09] MEDS: FUROSEMIDE 40 MG INJ IV (06:00)
[2019-03-09] MEDS: MEROPENEM 500MG/50 ML (PMX) 50 ML IVPB (06:00)
[2019-03-09] MEDS: HYDROCORTISONE 100 MG INJ IV (06:00)
[2019-03-09] MEDS ORDERED: MAGNESIUM SULFATE 1 GM/100 ML D5W IVPB (06:00)
[2019-03-09] MEDS ORDERED: DEXTROSE 50% 50 ML SYRINGE (06:00)
[2019-03-09] MEDS ORDERED: VANCOMYCIN 1.25 GM/NS 250 ML 250 ML IVPB (13:00)
== END 2019-03-09 06:20 | disposition expired | DRG 834 ==
LOC: 6WM 03-02 00:53 → TEL 03-08 07:46 → E/R 02:14 → MS1 03-06 06:14 → ICU 03-08 08:50 → MS1 03-06 16:22 → ICU 05:45
PROC: 30233N1 Transfusion of Nonautologous Red Blood Cells into Peripheral Vein, Percutaneous Approach (ICD-10-PCS; principal; 2019-03-02 16:10)
PROC: 30233R1 Transfusion of Nonautologous Platelets into Peripheral Vein, Percutaneous Approach (ICD-10-PCS; 2019-03-02 16:10)
PROC: 0DJ08ZZ Inspection of Upper Intestinal Tract, Via Natural or Artificial Opening Endoscopic (ICD-10-PCS; 2019-03-02 16:10)
PROC: 0DJD8ZZ Inspection of Lower Intestinal Tract, Via Natural or Artificial Opening Endoscopic (ICD-10-PCS; 2019-03-02 16:10)
PROC: 30233K1 Transfusion of Nonautologous Frozen Plasma into Peripheral Vein, Percutaneous Approach (ICD-10-PCS; 2019-03-02 16:10)
PROC: 0BH17EZ Insertion of Endotracheal Airway into Trachea, Via Natural or Artificial Opening (ICD-10-PCS; 2019-03-02 16:10)
PROC: 5A1935Z Respiratory Ventilation, Less than 24 Consecutive Hours (ICD-10-PCS; 2019-03-02 16:10)
PROC: 06HM33Z Insertion of Infusion Device into Right Femoral Vein, Percutaneous Approach (ICD-10-PCS; 2019-03-02 16:10)
DX: C92.00 Acute myeloblastic leukemia, not having achieved remission (principal); R65.21 Severe sepsis with septic shock; A41.9 Sepsis, unspecified organism; J96.01 Acute respiratory failure with hypoxia; J18.9 Pneumonia, unspecified organism; N17.0 Acute kidney failure with tubular necrosis; R57.8 Other shock; D61.818 Other pancytopenia; E87.2 Acidosis; R18.8 Other ascites; E87.1 Hypo-osmolality and hyponatremia; G93.40 Encephalopathy, unspecified; K63.3 Ulcer of intestine; N17.9 Acute kidney failure, unspecified; I46.9 Cardiac arrest, cause unspecified; D69.6 Thrombocytopenia, unspecified; E88.81 Metabolic syndrome and other insulin resistance; E11.649 Type 2 diabetes mellitus with hypoglycemia without coma; E87.8 Other disorders of electrolyte and fluid balance, not elsewhere classified; R13.10 Dysphagia, unspecified; E87.5 Hyperkalemia; I10 Essential (primary) hypertension; J45.909 Unspecified asthma, uncomplicated; E78.5 Hyperlipidemia, unspecified; F32.9 Major depressive disorder, single episode, unspecified; I25.10 Atherosclerotic heart disease of native coronary artery without angina pectoris; Z68.28 Body mass index [BMI] 28.0-28.9, adult; D73.5 Infarction of spleen; R60.1 Generalized edema; K26.9 Duodenal ulcer, unspecified as acute or chronic, without hemorrhage or perforation; N50.89 Other specified disorders of the male genital organs; R19.7 Diarrhea, unspecified
CPT/HCPCS: 31500; 36415; 36430; 36600; 71045; 74176; 76700; 76775; 76870; 80048; 80053; 81001; 81003; 82533; 82803; 82947; 82962; 83605; 83615; 83690; 83735; 83880; 84100; 84484; 85025; 85045; 85049; 85362; 85378; 85384; 85610; 85670; 85730; 86644; 86850; 86870; 86900; 86901; 86920; 86945; 87040-91; 87045; 87075; 87081; 87177; 87205; 92950; 93005; 93970; 94002; 94003; 94640; 94660; 94664; 94770; 96360; 97162; 99285-25